=== PATIENT | male | born 1995 | race Caucasian/White ===

== ENCOUNTER → 2018-11-08 | Outpatient (CLI) | payer OTHER ==
[~2018-11-08] MED LIST: AMBIEN10 M1 PO; BUSPAR15 MG PO; FIORINAL W/CODE1 TAB PO; LITHIUM CARBON300 MG PO; PROZAC40 M1 PO
[2018-11-08 10:29] LABS: ALBUMIN 4.1 gm/dl (3.1-4.5); ALKALINE PHOSPHATASE 91 U/L (45-117); BUN 10 mg/dl (7-24); CHLORIDE 108 mmol/L (98-107); CREATININE 0.86 mg/dL (0.70-1.30); SGOT/AST 20 IU/L (3-35); SGPT/ALT 25 U/L (12-78); SODIUM 141 mmol/L (136-145); TOTAL PROTEIN 7.3 gm/dL (6.4-8.2)
[2018-11-08 10:30] LABS: BASO # 0.1 10*3/uL (0.0-0.1); BASO % 1.2 % (0.0-1.0); EOS # 0.2 10*3/uL (0.0-0.4); EOS % 3.1 % (1.0-4.0); HEMATOCRIT 46.7 % (42.0-52.0); HEMOGLOBIN 16.3 g/dl (14.0-18.0); LYMPH # 2.1 10*3/uL (1.3-4.4); LYMPH % 40.2 % (27.0-41.0); MEAN CELL VOLUME 92.5 fl (80.0-94.0); MEAN CORPUSCULAR HGB 32.3 pg (27.0-31.0); MEAN CORPUSCULAR HGB CONC 34.9 g/dl (33.0-37.0); MEAN PLATELET VOLUME 9.9 fl (9.6-12.3); MONO # 0.7 10*3/uL (0.1-1.0); MONO % 13.1 % (3.0-9.0); NEUT # 2.2 10*3/uL (2.3-7.9); NEUT % 42.2 % (47.0-73.0); PLATELET COUNT AUTOMATED 286 10*3/uL (130-400); RED BLOOD COUNT 5.05 10*6/uL (4.50-5.90); RED CELL DISTRI WIDTH 12.4 % (0-14.5); WHITE BLOOD COUNT 5.2 10*3/uL (4.8-10.8)
[2018-11-08 10:36] LABS: THYROID STIM HORMONE (HS) 0.946 uIU/ml (0.358-4.75)
[2018-11-08 10:39] LABS: POTASSIUM 4.1 mmol/L (3.5-5.1)
[2018-11-08 11:21] LABS: VITAMIN D, 25-HYDROXY 21.6 ng/mL (30-100)
== END | disposition home or self-care (01) ==
LOC: LAB 09:33
PROVIDERS: Physician Assistant
DX: Z51.81 Encounter for therapeutic drug level monitoring (principal); E55.9 Vitamin D deficiency, unspecified; R53.83 Other fatigue; Z79.899 Other long term (current) drug therapy

== ENCOUNTER 2019-05-02 21:32 | Emergency (ER) | payer OTHER ==
[~2019-05-02] VITALS: Ht 180.3 cm; Wt 63.5 kg
[2019-05-02] MEDS ORDERED: TRUVADA 200 MG-1 TAB PO (22:12)
[2019-05-02] MEDS ORDERED: ADDERALL5 MG PO (22:12)
[2019-05-02] MEDS ORDERED: MOBIC7.5 MG PO (22:13)
[2019-05-02] MEDS ORDERED: VALIUM10 MG PO (22:13)
[2019-05-02] MEDS ORDERED: 'CLONIDINE0.1 MG PO (22:13)
[2019-05-02] MEDS ORDERED: AMITRIPTYLINE10 MG PO (22:14)
[2019-05-02] MEDS ORDERED: IBU800 MG PO (23:30)
[2019-05-02] MEDS ORDERED: CYCLOBENZAPRINE10 MG PO (23:30)
[2019-05-03] MEDS ORDERED: CYCLOBENZAPRINE10 MG PO (00:15)
== END 2019-05-03 00:45 | disposition home or self-care (01) ==
LOC: ED 21:32
DX: M54.5 Low back pain (principal); R20.0 Anesthesia of skin; F17.200 Nicotine dependence, unspecified, uncomplicated; Z79.899 Other long term (current) drug therapy

== ENCOUNTER 2019-06-27 01:27 | Emergency (ER) | payer MEDICAID ==
[~2019-06-27] VITALS: Ht 180.3 cm; Wt 59.4 kg
[~2019-06-27 01:27] MED LIST changes: +'CLONIDINE0.1 MG PO; +ADDERALL5 MG PO; +AMITRIPTYLINE10 MG PO; +CYCLOBENZAPRINE10 MG PO; +IBU800 MG PO; +MOBIC7.5 MG PO; +TRUVADA 200 MG-1 TAB PO; +VALIUM10 MG PO
[2019-06-27] MEDS ORDERED: KENALOG 0.025%15 GM T (01:49)
[2019-06-27] MEDS ORDERED: ELIMITE 5%60 GM T (01:49)
== END 2019-06-27 02:03 | disposition home or self-care (01) ==
LOC: ED 01:27
DX: S80.862A Insect bite (nonvenomous), left lower leg, initial encounter (principal); S60.562A Insect bite (nonvenomous) of left hand, initial encounter; S60.561A Insect bite (nonvenomous) of right hand, initial encounter; S90.862A Insect bite (nonvenomous), left foot, initial encounter; F17.200 Nicotine dependence, unspecified, uncomplicated; Z88.6 Allergy status to analgesic agent; Z91.041 Radiographic dye allergy status; Z79.899 Other long term (current) drug therapy; W57.XXXA Bitten or stung by nonvenomous insect and other nonvenomous arthropods, initial encounter; Y93.89 Activity, other specified; Y92.89 Other specified places as the place of occurrence of the external cause; Y99.8 Other external cause status

== ENCOUNTER 2019-09-01 12:35 | Inpatient (IN) | payer OTHER ==
[~2019-09-01] VITALS: Ht 180.3 cm; Wt 67.8 kg
[~2019-09-01 12:35] MED LIST changes: +ELIMITE 5%60 GM T; +KENALOG 0.025%15 GM T
[2019-09-01 12:43] VITALS: BP 106/63
--- NOTE | 2019-09-01 13:17 | NUR ---
SPOKE WITH VANNESSA RODGERS, SPOKE WITH PARESH. RECOMENDED ETOH, ASA, TYLENOL AND EKG.
[2019-09-01 13:33] VITALS: BP 116/82
[2019-09-01 13:49] LABS: ALBUMIN 4.2 gm/dl (3.1-4.5); ALKALINE PHOSPHATASE 75 U/L (45-117); BUN 7 mg/dl (7-24); CHLORIDE 108 mmol/L (98-107); CREATININE 0.88 mg/dL (0.70-1.30); POTASSIUM 3.5 mmol/L (3.5-5.1); SGOT/AST 78 IU/L (3-35); SGPT/ALT 56 U/L (12-78); SODIUM 139 mmol/L (136-145); TOTAL PROTEIN 7.1 gm/dL (6.4-8.2)
[2019-09-01 13:54] LABS: ETHYL ALCOHOL < 3.0 mg/dl (<3); TROPONIN I < 0.015 ng/ml (<0.045)
[2019-09-01 14:30] VITALS: BP 110/79
[2019-09-01 14:39] LABS: BASO % 0.5 % (0.0-1.0); EOS % 0.1 % (1.0-4.0); HEMATOCRIT 45.7 % (42.0-52.0); HEMOGLOBIN 15.7 g/dl (14.0-18.0); LYMPH # 2.2 10*3/uL (1.3-4.4); LYMPH % 25.7 % (27.0-41.0); MEAN CELL VOLUME 98.9 fl (80.0-94.0); MEAN CORPUSCULAR HGB CONC 34.4 g/dl (33.0-37.0); MEAN PLATELET VOLUME 9.8 fl (9.6-12.3); MONO # 1.4 10*3/uL (0.1-1.0); MONO % 16.5 % (3.0-9.0); NEUT # 4.8 10*3/uL (2.3-7.9); NEUT % 56.7 % (47.0-73.0); PLATELET COUNT AUTOMATED 268 10*3/uL (130-400); RED BLOOD COUNT 4.62 10*6/uL (4.50-5.90); RED CELL DISTRI WIDTH 12.1 % (0-14.5); WHITE BLOOD COUNT 8.5 10*3/uL (4.8-10.8)
--- NOTE | 2019-09-01 15:07 | NUR ---
PT IS AWAKE BUT DROWSY. POX 100% RA. PT REFUSING IV AND NARCAN THAT WAS ORDERED. DR LOPEZ NOTIFIED.
--- NOTE | 2019-09-01 15:19 | NUR ---
IV WAS ESTABLISED, IV NARCAN WAS GIVEN, PT IS AWAKE AND ORIENTED, REMAINS DROWSY. POX 100% RA. PT OFF THE FLOOR TO CT.
[2019-09-01 15:20] VITALS: BP 121/65
[2019-09-01 16:00] VITALS: BP 107/58
--- NOTE | 2019-09-01 16:00 | NUR ---
A 24, admitted to [facility], under the services of SIMIN Caballero DO with a diagnosis of INTENTIONAL DRUG OVERDOSE OF DRUG TABLET FORM. Chief complaint is FOUND BY SISTER. Patient arrived via stretcher from ER. Monitor applied. Initial assessment completed. Vital signs taken and recorded. SIMIN CABALLERO DO notified of admission to the unit. Orders received. See assessment for past medical history, medications and allergies. Patient and/or family oriented to unit. [facility] visitation policy reviewed. Clothing/patient valuable form completed. ALMA ERVIN
--- NOTE | 2019-09-01 17:25 | NUR ---
Soniya NOTIFIED OF CONSULT.
--- NOTE | 2019-09-01 17:29 | NUR ---
EDDIE JUNIRO NOTIFIED OF NEW CONSULT. STATED TO INFORM HER WHEN PATIENT IS MEDICALLY STABLE. SHE CANNOT DO ANYTHING UNTIL THAT TIME.
[2019-09-01 17:35] LABS: ACT PARTIAL THROMBO TIME 26.1 SECONDS (20.0-32.1)
[2019-09-01 20:00] VITALS: BP 114/86
[2019-09-02] VITALS: BP 107/64
--- NOTE | 2019-09-02 01:31 | NUR ---
SPOKE WITH [facility].
--- NOTE | 2019-09-02 02:45 | NUR ---
PATIENT COVERED IN BLOOD AND BED IS WET, PATIENT HAS REMOVED IV AND ALSO URINATED ON THE BED. IV SITE COVERED WITH DRY STERILE DRESSING. PATIENT BATHED AT THIS TIME. MORE ALERT, BUT REMAINS CONFUSED
--- NOTE | 2019-09-02 03:00 | NUR ---
IV started right antecubital with #22 protective cath after 2 attempts. Site prepped with Chloroprep. Sterile dressing applied. Patient tolerated procedure well. ROBERTO HOWARD
--- NOTE | 2019-09-02 03:45 | NUR ---
PATIENT SAT UP, REORIENTED, AND PROVIDED WITH BOWL OF CEREAL PER REQUEST, PATIENT VERY DISORIENTED BUT BLE TO FEED SELF. RN WILL CONTINUE TO MONITOR
[2019-09-02 04:00] VITALS: BP 109/68
[2019-09-02 04:39] LABS: BASO % 0.5 % (0.0-1.0); EOS # 0.1 10*3/uL (0.0-0.4); EOS % 0.8 % (1.0-4.0); HEMATOCRIT 44.6 % (42.0-52.0); HEMOGLOBIN 15.1 g/dl (14.0-18.0); LYMPH # 2.2 10*3/uL (1.3-4.4); LYMPH % 27.9 % (27.0-41.0); MEAN CELL VOLUME 98.7 fl (80.0-94.0); MEAN CORPUSCULAR HGB 33.4 pg (27.0-31.0); MEAN CORPUSCULAR HGB CONC 33.9 g/dl (33.0-37.0); MEAN PLATELET VOLUME 9.4 fl (9.6-12.3); MONO # 0.7 10*3/uL (0.1-1.0); NEUT # 4.9 10*3/uL (2.3-7.9); NEUT % 61.4 % (47.0-73.0); PLATELET COUNT AUTOMATED 224 10*3/uL (130-400); RED BLOOD COUNT 4.52 10*6/uL (4.50-5.90); RED CELL DISTRI WIDTH 12.1 % (0-14.5)
[2019-09-02 04:52] LABS: BUN 8 mg/dl (7-24); CHLORIDE 107 mmol/L (98-107); CREATININE 0.84 mg/dL (0.70-1.30); POTASSIUM 3.1 mmol/L (3.5-5.1); SODIUM 139 mmol/L (136-145)
[2019-09-02 04:53] LABS: PHOSPHOROUS 2.8 mg/dL (2.5-4.9)
--- NOTE | 2019-09-02 06:05 | NUR ---
PATIENT RESTING QUIETLY WITH NO SIGNS OR SYMPTOMS OF DISTRESS, PATIENT HAS EYES CLOSED, APPEARS TO BE SLEEPING. RN WILL CONTINUE TO MONITOR
--- NOTE | 2019-09-02 07:37 | NUR ---
Shift chart check completed.24 HR chart check completed.
[2019-09-02 08:00] VITALS: BP 108/60
[2019-09-02 08:05] VITALS: BP 108/60
--- NOTE | 2019-09-02 08:20 | NUR ---
ON ASSESSMENT AROUSED TO HIS NAME, ABLE TO SAY HE'S IN "[facility]" "BECAUSE I TOOK TOO MANY FIORICET". HIS ONLY COMPLAINT IS BEING COLD. WARM BLANKETS APPLIED. ACETADOTE INFUSING AT 33/HR. DR SHRESTHA HAS VISITED. PT COOPERATIVE AT PRESENT.
--- NOTE | 2019-09-02 08:44 | NUR ---
DR TEAGUE HAS VISITED. EDDIE JUNIOR UPDATED THAT PT STILL RECEIVING ACETADOTE IV.
[2019-09-02 08:48] LABS: ALBUMIN 3.7 gm/dl (3.1-4.5); ALKALINE PHOSPHATASE 70 U/L (45-117); BUN 9 mg/dl (7-24); CHLORIDE 106 mmol/L (98-107); CREATININE 0.83 mg/dL (0.70-1.30); POTASSIUM 3.4 mmol/L (3.5-5.1); SGOT/AST 48 IU/L (3-35); SGPT/ALT 45 U/L (12-78); SODIUM 140 mmol/L (136-145); TOTAL PROTEIN 6.8 gm/dL (6.4-8.2)
--- NOTE | 2019-09-02 09:00 | NUR ---
dain godoy will work with patient on discharge arrangements, case management will follow
[2019-09-02 10:04] LABS: BILIRUBIN NEGATIVE (NEGATIVE); BLOOD NEGATIVE (NEGATIVE); CLARITY SL CLOUDY (CLEAR); COLOR YELLOW (YELLOW); GLUCOSE NEGATIVE (NEGATIVE); KETONE 1+ (NEGATIVE); LEUKO ESTERASE NEGATIVE (NEGATIVE); NITRITE NEGATIVE (NEGATIVE); SPECIFIC GRAVITY >= 1.030 (1.005-1.030); UROBILINOGEN 0.2 E.U./dl (0.2-1.0)
--- NOTE | 2019-09-02 10:04 | NUR ---
PT HAS BEEN ON THE PHONE MOST OF THE MORNING, ATTEMPTING TO PHONE FAMILY MEMBERS. WHEN HE TALKS WITH THEM HE USES CURSE WORDS FREELY. HE DID SAY "IF I'M NOT PINK SLIPPED, I'M LEAVING". INFORMED PT HE IS INDEED PINK SLIPPED. HE'S COOPERATIVE AT PRESENT.
[2019-09-02 10:11] LABS: URINE AMPHETAMINES < 1000 (1000ng/ml); URINE BARBITURATES > 200 (200ng/ml); URINE BENZODIAZEPINES < 200 (200ng/ml); URINE CANNABINOIDS (THC) < 50 (50ng/ml); URINE COCAINE > 300 (300ng/ml); URINE METHADONE < 300 (300ng/ml); URINE OPIATES < 300 (300ng/ml)
[2019-09-02 10:14] LABS: BACTERIA TRACE; MUCOUS 2+
[2019-09-02 10:18] LABS: URINE PHENCYCLIDINE < 25 (25ng/ml)
--- NOTE | 2019-09-02 10:40 | NUR ---
MALIK FROM [facility] HAS CALLED TO CHECK ON REPEAT LABS. THEY RECOMMEND FINISH CURRENT BAG OF ACETADOTE AND NO FURTHER TESTING NEEDED. EDDIE JUNIOR AND DR ESTRELLA ARE BOTH HERE IN [facility].
--- NOTE | 2019-09-02 10:54 | NUR ---
EDDIE JUNIOR HERE TO SEE PT. DR ESTRELLA HERE IN [facility], HASN'T SEEN PT YET.
--- NOTE | 2019-09-02 11:02 | NUR ---
met with client to assess for suicide risk, this client reports that he had a lot of stress and he just wanted to sleep, he is denying suicidal ideation to me now, stated that was so dumb, client reports that he feels like he has a lot of support, [facility], he has a therapist and a cpst worker, he said that he wants to go home and he now knows that he has a lot of work to do and plans to see his lead case manager today. client could be treated as an outpatient and is not at risk for suicide at this time. discussed with dr gr.
[2019-09-02 12:00] VITALS: BP 134/92
--- NOTE | 2019-09-02 15:04 | NUR ---
PT INFORMED DISCHARGE ORDER OBTAINED AND HE CAN CALL FOR A RIDE.
--- NOTE | 2019-09-02 15:38 | NUR ---
MONITOR AND IV REMOVED. DISCHARGE INSTRUCTIONS TO PT. HE LEFT THE [facility], AMBULATORY, TO THE FRONT OF THE HOSPITAL, IN STABLE CONDITION, WITH ALL HIS BELONGINGS.
== END 2019-09-02 15:38 | disposition home or self-care (01) | DRG 817 ==
LOC: ED 12:35 → ICCU 15:02 → EDHOLD 15:02 → ICCU 15:10
PROVIDERS: Emergency Medicine; Internal Medicine; Student in an Organized Health Care Education/Training Program; ADMIT Internal Medicine
DX: T39.1X2A Poisoning by 4-Aminophenol derivatives, intentional self-harm, initial encounter (principal); T42.3X2A Poisoning by barbiturates, intentional self-harm, initial encounter; R45.851 Suicidal ideations; G92 Toxic encephalopathy; F17.210 Nicotine dependence, cigarettes, uncomplicated; D72.810 Lymphocytopenia; F31.9 Bipolar disorder, unspecified; G47.00 Insomnia, unspecified; M85.80 Other specified disorders of bone density and structure, unspecified site; E78.00 Pure hypercholesterolemia, unspecified; F14.10 Cocaine abuse, uncomplicated; F10.29 Alcohol dependence with unspecified alcohol-induced disorder; Z88.6 Allergy status to analgesic agent; Z91.041 Radiographic dye allergy status; Z71.6 Tobacco abuse counseling; Z82.49 Family history of ischemic heart disease and other diseases of the circulatory system; Z79.899 Other long term (current) drug therapy; Y92.89 Other specified places as the place of occurrence of the external cause

== ENCOUNTER → 2021-07-23 | Outpatient (CLI) | payer OTHER ==
[2021-07-23 10:05] LABS: HEMATOCRIT 44.2 % (42.0-52.0); MEAN CELL VOLUME 91.5 fl (80.0-94.0); MEAN CORPUSCULAR HGB 30.8 pg (27.0-31.0); MEAN CORPUSCULAR HGB CONC 33.7 g/dl (33.0-37.0); MEAN PLATELET VOLUME 9.6 fl (9.6-12.3); RED BLOOD COUNT 4.83 10*6/uL (4.50-5.90); RED CELL DISTRI WIDTH 13.1 % (0-14.5); WHITE BLOOD COUNT 6.8 10*3/uL (4.8-10.8)
[2021-07-23 10:24] LABS: ALBUMIN 3.8 gm/dl (3.1-4.5); ALKALINE PHOSPHATASE 149 U/L (45-117); BUN 6 mg/dl (7-24); CHLORIDE 104 mmol/L (98-107); CHOLESTEROL 176 mg/dL (<200); CREATININE 0.74 mg/dL (0.70-1.30); LDL CHOLESTEROL 108 mg/dL (9-159); POTASSIUM 3.5 mmol/L (3.5-5.1); SGOT/AST 33 IU/L (3-35); SGPT/ALT 31 U/L (12-78); SODIUM 137 mmol/L (136-145); TOTAL PROTEIN 7.3 gm/dL (6.4-8.2); TRIGLYCERIDES 161 mg/dl (<150)
== END | disposition home or self-care (01) ==
LOC: LAB 09:46
PROVIDERS: ATTEND Physician Assistant
DX: F31.9 Bipolar disorder, unspecified (principal); Z72.0 Tobacco use